=== PATIENT | male | born 1990 | race Caucasian/White ===

== ENCOUNTER 2019-08-16 12:36 | Emergency (ER) | payer SELFPAY ==
[~2019-08-16] VITALS: Ht 170.2 cm; Wt 77.0 kg
[2019-08-16 12:46] VITALS: BP 134/89
[2019-08-16] MEDS ORDERED: BACITRACIN ZINC OINT UDPKT TOP ONE (13:15)
== END 2019-08-16 13:26 | disposition home or self-care (01) ==
LOC: ER 13:21
DX: S01.01XA Laceration without foreign body of scalp, initial encounter (principal); W22.8XXA Striking against or struck by other objects, initial encounter; Y93.89 Activity, other specified; Y92.812 Truck as the place of occurrence of the external cause; Y99.8 Other external cause status
CPT/HCPCS: 99283